=== PATIENT | female | born 1970 | race Caucasian/White ===

== ENCOUNTER 2019-06-29 10:12 | Emergency (ER) | payer OTHER ==
[~2019-06-29] VITALS: Ht 167.6 cm; Wt 77.1 kg
[2019-06-29 10:55] VITALS: BP 147/96
[2019-06-29] MEDS ORDERED: traMADol 50 MG TABLET PO ONE (11:30)
--- NOTE | 2019-06-29 11:43 | PHYS DOC ---
Past Medical History Past Medical History: Hypertension (GINI MCMULLEN APRN) Past Surgical History: Hysterectomy (GINI MCMULLEN APRN) Alcohol Use: Occasionally Drug Use: None (GINI MCMULLEN APRN) Attending Signature I have participated in the care of this patient and I have reviewed and agree with all pertinent clinical information above including history, exam, and recommendations. (DAVE TRACEY MD) Adult General Chief Complaint Chief Complaint: LOWEREXTREMITY INJURY HPI HPI Patient is a 49 year old Female who presents with was trying to break up 2 dogs fighting last night when one dog ran into the medial part of her right knee also causing her ankle to roll inward. Patient states she was up and walking on the extremity last night but in alot of pain. Ambulatory but limping. Took 1000mg Tylenol at 0400. Rating her pain a /10. (GINI MCMULLEN APRN) Review of Systems Review of Systems Musculoskeletal: Denies back pain. Right knee and ankle joint pain [] All other systems were reviewed and found to be within normal limits, except as documented in this note. (GINI MCMULLEN APRN) Current Medications Current Medications Current Medications Medications (Trade) Dose Ordered Sig/Silvina Start Time Stop Time Status Last Admin Dose Admin Tramadol HCl (Ultram) 50 mg 1X ONCE 06/29/19 11:30 06/29/19 11:31 DC 06/29/19 11:34 50 MG (DAVE TRACEY MD) Allergies Allergies Allergies Coded Allergies Type Severity Reaction Last Updated Verified No Known Drug Allergies 07/28/15 No (DAVE TRACEY MD) Physical Exam Physical Exam Constitutional: Well developed, well nourished, no acute distress, non-toxic appearance. [] Skin: Warm, dry, no erythema, no rash. [] Extremities: Right medial knee and right dorsal ankle tenderness, no cyanosis, no clubbing, Rgith knee ROM not intact, no edema. [] Neurologic: Alert and oriented X 3, normal motor function, normal sensory function, no focal deficits noted. [] Psychologic: Affect normal, judgement normal, mood normal. [] (GINI MCMULLEN APRN) Current Patient Data Vital Signs Vital Signs Date Time Temp Pulse Resp B/P (MAP) Pulse Ox O2 Delivery O2 Flow Rate FiO2 06/29/19 10:55 97.6 92 16 147/96 (113) 96 Room Air 97.6 (DAVE TRACEY MD) EKG EKG [] (GINI MCMULLEN APRN) Radiology/Procedures Radiology/Procedures [] (GINI MCMULLEN APRN) Impressions: [facility] [address] [place] [address] IMAGING REPORT Signed PATIENT: ROZINA BOWIE ACCOUNT: [id number] : 1970 LOCATION: ER AGE: 49 SEX: F EXAM STATUS: REG ER ORD. PHYSICIAN: GINI MCMULLEN APRN REASON: injury PROCEDURE: TIBIA FIBULA RIGHT Examination: KNEE RIGHT 4V, TIBIA FIBULA RIGHT, ANKLE RIGHT 3V History: Injury, pain Comparison/Correlation: None Findings: Total 4 images of the right knee were obtained including patellar sunrise, frontal, lateral, and oblique views. Frontal and lateral views of the right tibia and fibula were obtained. 3 images of the right ankle were provided. No significant joint effusion is identified. Joint spaces about the knee are unremarkable. No fracture or bony destruction. Ankle joint mortise is unremarkable. Enthesopathy at the distal Achilles tendon attachment site noted. Impression: No acute process. Electronically signed by: Ahmet Bailey MD (06/29/2019 12:10 PM) [facility] DICTATED and SIGNED BY: AHMET BAILEY MD DATE: 06/29/19 1210 (GINI MCMULLEN APRN) Course & Med Decision Making Course & Med Decision Making Ambulatory but limping. Able to bare partial weight on extremity. Tenderness to medial knee. No bruising, swelling or deformity. Right ankle is tender to palpation to dorsal malleolus. No swelling, bruising or deformity to the ankle. Popiteal pulse present. Cap refill < 3seconds. Skin pink warm and dry. No laxity in any knee or ankle joint. [] (GINI MCMULLEN APRN) Dragon Disclaimer Dragon Disclaimer This electronic medical record was generated, in whole or in part, using a voice recognition dictation system. (GINI MCMULLEN APRN) Departure Departure Impression: Primary Impression: Knee pain Additional Impression: Ankle pain Disposition: HOME, SELF-CARE Condition: STABLE Referrals: NO PCP (PCP) Patient Instructions: Ankle Sprain, Knee Sprain Additional Instructions: Follow up with your primary care physician. If pain no better in a week call Orthopedics. Use ice and heat to also help with pain. Rest your knee and ankle as much as possible. Scripts Hydrocodone/Apap 5-325 (NORCO 5-325 TABLET) 1 Each Tablet 1 TAB PO PRN Q6HRS PRN for PAIN, #10 TAB 0 Refills Prov: GINI MCMULLEN APRN 06/29/19 Ibuprofen (IBUPROFEN) 600 Mg Tablet 600 MG PO PRN Q6HRS PRN for INFLAMMATION, #20 TAB Prov: GINI MCMULLEN APRN 06/29/19 Problem Qualifiers Primary Impression: Knee pain Chronicity: acute Laterality: right Qualified Codes: M25.561 - Pain in right knee Additional Impression: Ankle pain Chronicity: acute Laterality: right Qualified Codes: M25.571 - Pain in right ankle and joints of right foot GINI MCMULLEN APRN Jun 29, 2019 11:43 DAVE TRACEY MD Jun 29, 2019 12:57
--- NOTE | 2019-06-29 12:13 | RAD ---
Examination: KNEE RIGHT 4V, TIBIA FIBULA RIGHT, ANKLE RIGHT 3V History: Injury, pain Comparison/Correlation: None Findings: Total 4 images of the right knee were obtained including patellar sunrise, frontal, lateral, and oblique views. Frontal and lateral views of the right tibia and fibula were obtained. 3 images of the right ankle were provided. No significant joint effusion is identified. Joint spaces about the knee are unremarkable. No fracture or bony destruction. Ankle joint mortise is unremarkable. Enthesopathy at the distal Achilles tendon attachment site noted. Impression: No acute process. Electronically signed by: Ahmet Munoz MD (06/29/2019 12:10 PM) [facility]
[2019-06-29] MEDS ORDERED: HYDR-3164 PO (12:27)
[2019-06-29] MEDS ORDERED: IBUP-1007 PO (12:27)
== END 2019-06-29 12:42 | disposition home or self-care (01) ==
LOC: ER 10:12
DX: M25.561 Pain in right knee (principal); M25.571 Pain in right ankle and joints of right foot; I10 Essential (primary) hypertension; Z90.710 Acquired absence of both cervix and uterus
CPT/HCPCS: 73564; 73590; 73610; 99284